=== PATIENT | male | born 1990 | race Hispanic/Latino ===

== ENCOUNTER 2017-03-25 16:17 | Emergency (ER) | payer OTHER ==
[~2017-03-25] VITALS: Ht 160 cm; Wt 90.9 kg
[2017-03-25] MEDS ORDERED: IBUP-1114 PO (16:33)
[2017-03-25] MEDS ORDERED: diphenhydrAMINE INJ 50MG/ML VIAL (J1200) IV ONE (17:00)
[2017-03-25] MEDS ORDERED: FAMOTIDINE 20 MG TAB PO ONE (17:00)
[2017-03-25] MEDS ORDERED: methylPREDNISolone INJ 125 MG/2 ML VIAL (J2930) IV ONE (17:00)
[2017-03-25] MEDS ORDERED: BENA25TA10 PO (18:14)
[2017-03-25] MEDS ORDERED: PRED20TA PO (18:14)
[2017-03-25] MEDS ORDERED: PEPC1TAB4 PO (18:14)
[2017-03-25 18:17] VITALS: BP 143/69
== END 2017-03-25 18:19 | disposition home or self-care (01) ==
LOC: M ED 18:17
DX: T78.1XXA Other adverse food reactions, not elsewhere classified, initial encounter (principal); L29.9 Pruritus, unspecified; H02.849 Edema of unspecified eye, unspecified eyelid; X58.XXXA Exposure to other specified factors, initial encounter; Y92.9 Unspecified place or not applicable; Y93.9 Activity, unspecified; Y99.8 Other external cause status; Z91.030 Bee allergy status

== ENCOUNTER → 2021-06-17 | Outpatient (REF) | payer OTHER ==
[~2021-06-17] MED LIST: BENA25TA10 PO; IBUP-1114 PO; PEPC1TAB5 PO; PRED20TA PO
== END ==
LOC: M LAB REF 20:42
PROVIDERS: ATTEND Physician Assistant Medical
DX: R50.9 Fever, unspecified (principal)

== ENCOUNTER → 2021-12-09 | Outpatient (REF) | payer OTHER | LOC: M SMT 17:01 | PROVIDERS: ATTEND Urology | DX: Z30.2 Encounter for sterilization (principal) ==